=== PATIENT | female | born 1975 | race Caucasian/White ===

== ENCOUNTER → 2018-09-13 | Outpatient (CLI) | payer SELFPAY ==
[2018-09-13 09:59] LABS: Basophils # (A) 0.1 k/uL (0-0.2); Basophils % (A) 1 %; Eosinophils # (A) 0.3 k/uL (0-0.7); Eosinophils % (A) 3 %; HCT 43.9 % (34.0-46.0); HGB 14.2 gm/dL (11.4-16.0); Lymphocytes # (A) 1.6 k/uL (1.0-4.8); Lymphocytes % (A) 12 %; MCH 29.7 pg (25.0-35.0); MCHC 32.4 g/dL (31.0-37.0); MCV 91.7 fL (80.0-100.0); Mean Platelet Volume 6.6; Monocytes # (A) 0.5 k/uL (0-1.0); Monocytes % (A) 4 %; Neutrophils # (A) 10.3 k/uL (1.3-7.7); Neutrophils % (A) 80 %; Platelet Count 457 k/uL (150-450); RBC 4.79 m/uL (3.80-5.40); RDW 12.3 % (11.5-15.5); WBC 12.9 k/uL (3.8-10.6)
[2018-09-13 11:23] LABS: Erythrocyte Sedimentation Rate 42 mm/hr (0-20)
[2018-09-13 16:26] LABS: Albumin 4.4 g/dL (3.80-4.90); Albumin/Globulin Ratio 2.1 (1.60-3.17); Anion Gap 8.1 mmol/L (4.00-12.00); Calcium 9.4 mg/dL (8.7-10.3); Carbon Dioxide 27.9 mmol/L (21.6-31.8); Globulin 2.1 g/dL (1.6-3.3); Potassium 4.7 mmol/L (3.5-5.5); Total Bilirubin 0.4 mg/dL (0.2-1.2); Total Protein 6.5 g/dL (6.2-8.2)
[2018-09-13 16:41] LABS: Rheumatoid Factor <4 IU/mL (0-15)
== END | disposition home or self-care (01) ==
LOC: LABWHC1 09:16
PROVIDERS: ATTEND Internal Medicine
DX: M62.81 Muscle weakness (generalized) (principal); M25.50 Pain in unspecified joint
CPT/HCPCS: 36415; 80053; 82306; 85025; 85652; 86038; 86431

== ENCOUNTER → 2018-10-03 | Outpatient (CLI) | payer SELFPAY ==
[2018-10-03 13:46] LABS: Basophils % (A) 0 %; Eosinophils # (A) 0.3 k/uL (0-0.7); Eosinophils % (A) 2 %; HCT 46.3 % (34.0-46.0); Lymphocytes # (A) 2.2 k/uL (1.0-4.8); Lymphocytes % (A) 18 %; MCH 28.3 pg (25.0-35.0); MCHC 30.3 g/dL (31.0-37.0); MCV 93.4 fL (80.0-100.0); Mean Platelet Volume 6.5; Monocytes # (A) 0.5 k/uL (0-1.0); Monocytes % (A) 4 %; Neutrophils % (A) 74 %; Platelet Count 337 k/uL (150-450); RBC 4.96 m/uL (3.80-5.40); RDW 13.5 % (11.5-15.5); WBC 12.2 k/uL (3.8-10.6)
[2018-10-03 15:14] LABS: Erythrocyte Sedimentation Rate 15 mm/hr (0-20)
[2018-10-05 10:23] LABS: Lyme IgG/IgM 0.09 Index
== END ==
LOC: LABWHC1 12:42
PROVIDERS: ATTEND Internal Medicine
DX: G89.4 Chronic pain syndrome (principal); R53.83 Other fatigue; R53.81 Other malaise
CPT/HCPCS: 36415; 85025; 85652; 86618

== ENCOUNTER 2019-01-15 19:28 | Emergency (ER) | payer BC ==
[2019-01-15 19:34] VITALS: TEMP 98.3
[2019-01-15] MEDS ORDERED: KETOROLAC 30 MG/ML 1 ML VIAL IVP STA (19:59)
[2019-01-15] MEDS ORDERED: HYDROmorphone 0.5 MG/0.5 ML SYRINGE IVP STA (19:59)
[2019-01-15] MEDS ORDERED: SODIUM CHLORIDE 0.9% 1,000 ML IV STA (19:59)
[2019-01-15] MEDS ORDERED: ONDANSETRON 4 MG/2 ML VIAL IVP STA (19:59)
[2019-01-15 20:45] LABS: Appearance,Urine Cloudy (Clear); Bilirubin,Urine Negative (Negative); Blood,Urine Moderate (Negative); Color,Urine Yellow; Glucose,Urine (UA) Negative (Negative); Ketones,Urine Trace (Negative); Leukocyte Esterase,Urine Moderate (Negative); Mucus,Urine Many /hpf; Nitrite,Urine Negative (Negative); PH, Urine 6.5 (5.0-8.0); Protein,Urine Trace (Negative); RBC,Urine 134 /hpf (0-5); Specific Gravity,Urine 1.031 (1.001-1.035); Squamous Epithelial Cell,Urine 19 /hpf (0-4); WBC,Urine 1 /hpf (0-5)
[2019-01-15 20:46] LABS: Anisocytosis Slight; Basophils # (A) 0.1 k/uL (0-0.2); Basophils % (A) 1 %; Eosinophils # (A) 0.3 k/uL (0-0.7); Eosinophils % (A) 3 %; HCT 44.7 % (34.0-46.0); HGB 14.6 gm/dL (11.4-16.0); Lymphocytes # (A) 2.9 k/uL (1.0-4.8); Lymphocytes % (A) 27 %; MCH 31.1 pg (25.0-35.0); MCHC 32.8 g/dL (31.0-37.0); MCV 94.7 fL (80.0-100.0); Mean Platelet Volume 6.9; Monocytes # (A) 0.4 k/uL (0-1.0); Monocytes % (A) 4 %; Neutrophils # (A) 6.8 k/uL (1.3-7.7); Neutrophils % (A) 65 %; Platelet Count 381 k/uL (150-450); RBC 4.71 m/uL (3.80-5.40); RDW 17.3 % (11.5-15.5); WBC 10.5 k/uL (3.8-10.6)
[2019-01-15 20:56] LABS: ALT 46 U/L (9-52); AST 29 U/L (14-36); African American GFR (CKD) >90 (>60 ml/min/1.73 sqM); Albumin 4.5 g/dL (3.5-5.0); Alkaline Phosphatase 103 U/L (38-126); Amylase 55 U/L (30-110); Anion Gap 10 mmol/L; Blood Urea Nitrogen 14 mg/dL (7-17); Calcium 9.7 mg/dL (8.4-10.2); Carbon Dioxide 26 mmol/L (22-30); Chloride 107 mmol/L (98-107); Glucose 94 mg/dL (74-99); Potassium 4.2 mmol/L (3.5-5.1); Sodium 143 mmol/L (137-145); Total Bilirubin 0.3 mg/dL (0.2-1.3); Total Protein 7.7 g/dL (6.3-8.2)
--- NOTE | 2019-01-15 20:58 | ED ---
Abdominal Pain HPI - General Chief Complaint: Abdominal Pain Stated Complaint: Side Pain Time Seen by Provider: 01/15/19 19:38 Source: patient Mode of arrival: ambulatory Limitations: no limitations - History of Present Illness Initial Comments: 43-year-old female patient presents to the emergency department today for evaluation of right flank pain radiating into the right lower quadrant. Patient states this started earlier today and has been worsening since. Patient states now she has a constant urge to urinate. States that she has a sharp stabbing pain to the right flank. She denies history of similar symptoms. Denies nausea, vomiting, constipation, or diarrhea with this. Denies any dysuria or hematuria. She denies fever or chills. States she has had a but no other abdominal surgeries. Denies chest pain, shortness of breath, or cough. Patient denies any recent rash, numbness, tingling, dizziness, weakness, headache, visual changes, or any other complaints. - Related Data Home Medications Medication Instructions Recorded Confirmed Folic Acid 1 mg PO DAILY 01/15/19 01/15/19 Methotrexate Sodium [Methotrexate] 17.5 mg PO MO 01/15/19 01/15/19 buPROPion HCL [Wellbutrin XL] 300 mg PO DAILY 01/15/19 01/15/19 predniSONE 5 mg PO HS 01/15/19 01/15/19 predniSONE 10 mg PO QAM 01/15/19 01/15/19 Previous Rx's Medication Instructions Recorded Ibuprofen [Motrin] 600 mg PO Q8HR PRN #30 tab 01/15/19 Ondansetron [Zofran ODT] 4 mg PO Q8HR PRN #10 tab 01/15/19 Tamsulosin HCl [Flomax] 0.4 mg PO DAILY #7 cap 01/15/19 Allergies Allergy/AdvReac Type Severity Reaction Status Date / Time Penicillins AdvReac Nausea & Verified 01/15/19 19:56 Vomiting Review of Systems ROS Statement: Those systems with pertinent positive or pertinent negative responses have been documented in the HPI. ROS Other: All systems not noted in ROS Statement are negative. Past Medical History Additional Past Medical History / Comment(s): RA History of Any Multi-Drug Resistant Organisms: None Reported Past Surgical History: Section, Tonsillectomy Past Psychological History: No Psychological Hx Reported Smoking Status: Current every day smoker Past Alcohol Use History: Occasional Past Drug Use History: None Reported General Exam Limitations: no limitations General appearance: alert, in no apparent distress, other (This is a well- developed, well-nourished adult female patient in no acute distress. Vital signs upon presentation are temperature 98.3F, pulse 67, respirations 20, pulse ox 99% on room air.) Eye exam: Present: normal appearance, PERRL, EOMI. Absent: scleral icterus, conjunctival injection, periorbital swelling ENT exam: Present: normal exam, normal oropharynx, mucous membranes moist Respiratory exam: Present: normal lung sounds bilaterally. Absent: respiratory distress, wheezes, rales, rhonchi, stridor Cardiovascular Exam: Present: regular rate, normal rhythm, normal heart sounds. Absent: systolic murmur, diastolic murmur, rubs, gallop, clicks GI/Abdominal exam: Present: soft, tenderness (Right lower quadrant), normal bowel sounds. Absent: distended, guarding, rebound, rigid Back exam: Present: normal inspection, CVA tenderness (R). Absent: CVA tenderness (L) Neurological exam: Present: alert Psychiatric exam: Present: normal affect, normal mood Skin exam: Present: warm, dry, intact, normal color. Absent: rash Course Vital Signs 01/15/19 01/15/19 19:30 22:23 Temperature 98.3 F Pulse Rate 67 61 Respiratory 20 16 Rate Blood Pressure 114/77 O2 Sat by Pulse 99 99 Oximetry Medical Decision Making - Medical Decision Making 43-year-old female patient presents to the emergency department today for evaluation of right flank pain and right lower quadrant abdominal pain. Physical examination did reveal some right lower quadrant tenderness and right CVA tenderness. Labs reviewed and did reveal hematuria. CT of the abdomen and pelvis was obtained and showed evidence for kidney stone on the right. The sto ne is at the right UVJ. I did discuss findings and results with the patient. She'll be treated with pain medication, Flomax, and increasing fluids. She is instructed to follow-up with urology as needed. She is instructed to follow-up with her primary care physician for recheck in 1-2 days. Return parameters were discussed in detail. She verbalizes understanding and agrees with this plan. - Lab Data Result diagrams: 01/15/19 20:28 01/15/19 20:28 Lab Results 01/15/19 01/15/19 01/15/19 Range/Units 20:28 20:28 20:28 WBC 10.5 (3.8-10.6) k/uL RBC 4.71 (3.80-5.40) m/uL Hgb 14.6 (11.4-16.0) gm/dL Hct 44.7 (34.0-46.0) % MCV 94.7 (80.0-100.0) fL MCH 31.1 (25.0-35.0) pg MCHC 32.8 (31.0-37.0) g/dL RDW 17.3 H (11.5-15.5) % Plt Count 381 (150-450) k/uL Neutrophils % 65 % Lymphocytes % 27 % Monocytes % 4 % Eosinophils % 3 % Basophils % 1 % Neutrophils # 6.8 (1.3-7.7) k/uL Lymphocytes # 2.9 (1.0-4.8) k/uL Monocytes # 0.4 (0-1.0) k/uL Eosinophils # 0.3 (0-0.7) k/uL Basophils # 0.1 (0-0.2) k/uL Anisocytosis Slight Sodium 143 (137-145) mmol/L Potassium 4.2 (3.5-5.1) mmol/L Chloride 107 (98-107) mmol/L Carbon Dioxide 26 (22-30) mmol/L Anion Gap 10 mmol/L BUN 14 (7-17) mg/dL Creatinine 0.86 (0.52-1.04) mg/dL Est GFR (CKD-EPI)AfAm >90 (>60 ml/min/1.73 sqM) Est GFR (CKD-EPI)NonAf 83 (>60 ml/min/1.73 sqM) Glucose 94 (74-99) mg/dL Calcium 9.7 (8.4-10.2) mg/dL Total Bilirubin 0.3 (0.2-1.3) mg/dL AST 29 (14-36) U/L ALT 46 (9-52) U/L Alkaline Phosphatase 103 (38-126) U/L Total Protein 7.7 (6.3-8.2) g/dL Albumin 4.5 (3.5-5.0) g/dL Amylase 55 (30-110) U/L Lipase 106 (23-300) U/L Urine Color Yellow Urine Appearance Cloudy H (Clear) Urine pH 6.5 (5.0-8.0) Ur Specific [place] 1.031 (1.001-1.035) Urine Protein Trace H (Negative) Urine Glucose (UA) Negative (Negative) Urine Ketones Trace H (Negative) Urine Blood Moderate H (Negative) Urine Nitrite Negative (Negative) Urine Bilirubin Negative (Negative) Urine Urobilinogen 6.0 (<2.0) mg/dL Ur Leukocyte Esterase Moderate H (Negative) Urine RBC 134 H (0-5) /hpf Urine WBC 1 (0-5) /hpf Ur Squamous Epith Cells 19 H (0-4) /hpf Urine Mucus Many H (None) /hpf - Radiology Data Radiology results: report reviewed, image reviewed CT abdomen and pelvis is obtained. Report was reviewed in its entirety. Impression by Dr. Robert Alston shows mild obstructive uropathy on the ipsilateral right, secondary to the 2 mm calcification of the right UVJ. Disposition Clinical Impression: Kidney stone on right side Disposition: HOME SELF-CARE Condition: Good Instructions (If sedation given, give patient instructions): Kidney Stones (ED) Additional Instructions: Increase fluids. Take medications as directed. Follow-up with urology for recheck as soon as possible. Return to the emergency department immediately for any new, worsening, or concerning symptoms. Prescriptions: Tamsulosin HCl [Flomax] 0.4 mg PO DAILY #7 cap Ibuprofen [Motrin] 600 mg PO Q8HR PRN #30 tab PRN Reason: Pain Ondansetron [Zofran ODT] 4 mg PO Q8HR PRN #10 tab PRN Reason: Nausea Is patient prescribed a controlled substance at d/c from ED?: No Referrals: Shirley Cole DO [Primary Care Provider] - 1-2 days Michael Gracia MD [STAFF PHYSICIAN] - 1-2 days Time of Disposition: 22:07
--- NOTE | 2019-01-15 21:41 | CT ---
EXAMINATION TYPE: CT abdomen pelvis wo con DATE OF EXAM: 01/15/2019 COMPARISON: None HISTORY: RT flank pain and urge to urinate. CT DLP: 1216.4 mGycm Automated exposure control for dose reduction was used. TECHNIQUE: Helical acquisition of images was performed from the lung bases through the pelvis. FINDINGS: Within the limitations of noncontrast CT the following observations are made. LUNG BASES: No acute findings. LIVER/GB: No significant abnormality is appreciated. PANCREAS: No significant abnormality is seen. SPLEEN: No significant abnormality is seen. ADRENALS: No significant abnormality is seen. KIDNEYS, URETERS, AND BLADDER: There is a 2 mm calcification at the right ureterovesical junction, as sociated with mild ureterectasis and mild prominence to the upper collecting system. There are a few scattered nonobstructing renal calcifications measuring 1 to 3 mm, greater on the right. PERITONEAL CAVITY: No pneumoperitoneum or fluid. RETROPERITONEAL ADENOPATHY: None visualized REPRODUCTIVE ORGANS: No significant abnormality is seen URINARY BLADDER: No significant abnormality is seen. PELVIC ADENOPATHY: None visualized. OSSEOUS STRUCTURES: No significant abnormality is seen. BOWEL: No significant abnormality is seen. The appendix has normal appearance. IMPRESSION: Mild obstructive uropathy on the ipsilateral right, secondary to a 2 mm calcification at the right UVJ.
[2019-01-15] MEDS ORDERED: TAMSULOSIN 0.4 MG CAP.ER.24H PO STA (21:44)
[2019-01-15] MEDS ORDERED: IBUPROFEN 600 MG STARTER PACK 4 TAB BTL PO STA (21:44)
[2019-01-15] MEDS ORDERED: ACET/COD 300 MG/30 MG STARTER PACK 6 TAB BTL PO STA (21:44)
[2019-01-15] MEDS ORDERED: ONDANSETRON 4 MG ODT STARTER PACK 2 TAB BTL PO STA (21:44)
[2019-01-15 22:25] VITALS: BP 114/77; PULSE 61; RESP 16
== END 2019-01-15 22:39 | disposition home or self-care (01) ==
LOC: EC 19:28
DX: N20.1 Calculus of ureter (principal); M06.9 Rheumatoid arthritis, unspecified; F17.200 Nicotine dependence, unspecified, uncomplicated; Z88.0 Allergy status to penicillin; Z79.52 Long term (current) use of systemic steroids; Z79.899 Other long term (current) drug therapy
CPT/HCPCS: 99284; 96374; 96375 ×2; 96361; 36415; 80053; 82150; 83690; 85025; 81001; 74176; J2405; J1885; S0119; J1170

== ENCOUNTER → 2023-07-13 | Outpatient (CLI) | payer BC ==
--- NOTE | 2023-07-13 14:34 | CT ---
EXAMINATION TYPE: CT abdomen pelvis w con DATE OF EXAM: 07/13/2023 COMPARISON: 01/15/2019 HISTORY: RLQ abdominal pain CT DLP: 1850.2 mGycm Automated exposure control for dose reduction was used. TECHNIQUE: Helical acquisition of images was performed from the lung bases through the pelvis. CONTRAST: Performed with Oral Contrast and with IV Contrast, patient injected with 100 mL of Isovue 300. FINDINGS: The lung bases are clear. There is surgical absence of the gallbladder.. There is no biliary ductal dilatation. There is no focal mass or organomegaly involving the liver, pancreas, spleen or adrenal glands. There is moderate to marked right-sided hydronephrosis secondary to a 6 mm obstructing calculus in th e proximal right ureter. Left kidney is unremarkable. The caliber the abdominal aorta is normal is no retroperitoneal adenopathy or hemorrhage. The bowel loops are normal in caliber and there is no evidence of dilatation or obstruction. No infla mmatory changes are identified in the bowel wall or mesentery. There is no free intraperitoneal air or fluid. No pelvic mass, free fluid, abscess or adenopathy. The osseous structures and soft tissues are intact. IMPRESSION: Moderate to marked right sided hydronephrosis secondary to an obstructing 6 mm proximal right uretera l calculus. No other significant abnormalities seen..
== END | disposition home or self-care (01) ==
LOC: RADCTMAIN 12:00
PROVIDERS: ATTEND Family Medicine
DX: N13.2 Hydronephrosis with renal and ureteral calculous obstruction (principal); R11.0 Nausea; R63.0 Anorexia
CPT/HCPCS: 74177; Q9967

== ENCOUNTER → 2023-07-20 | Outpatient (CLI) | payer BC ==
[2023-07-20 16:03] LABS: BUN/Creat Ratio 13.45 Ratio (12.00-20.00); Blood Urea Nitrogen 14.8 mg/dL (9.0-27.0); Calcium 9.5 mg/dL (8.7-10.3); Chloride 108 mmol/L (96-109); Glucose 94 mg/dL (70-110); Potassium 4.3 mmol/L (3.5-5.5); Sodium 144 mmol/L (135-145)
[2023-07-20 16:45] LABS: Appearance,Urine Cloudy (Clear); Bilirubin,Urine Negative (Negative); Blood,Urine Negative (Negative); Color,Urine Yellow (Yellow); Ketones,Urine Negative (Negative); Nitrite,Urine Negative (Negative); PH, Urine 6.5; Urobilinogen,Urine 0.2 E.U./DL
[2023-07-20 16:51] LABS: Bacteria,Urine 2+ (None Seen)
[2023-07-20 17:04] LABS: Basophils % (A) 0.8 %; Eosinophils % (A) 6.4 %; HGB 14.3 g/dL (12.0-15.0); Lymphocytes # (A) 2.78 X 10*3/uL (0.90-5.00); Lymphocytes % (A) 22.2 %; MCH 28.9 pg (27.0-32.0); MCHC 31.1 g/dL (32.0-37.0); MCV 93.1 FL (80.0-97.0); Mean Platelet Volume 10.4 FL (9.5-12.2); Monocytes # (A) 0.63 X 10*3/uL (0.20-1.00); NRBC Per 100 WBC 0 X 10*3/uL (0.00-0.01); Neutrophils # (A) 8.13 X 10*3/uL (1.80-7.70); Platelet Count 358 X 10*3/uL (140-440); RBC 4.94 X 10*6/uL (4.10-5.20); RDW 13.3 % (11.5-14.5); WBC 12.51 X 10*3/uL (4.50-10.00)
== END | disposition home or self-care (01) ==
LOC: LABWHC1 12:20
PROVIDERS: ATTEND Urology
DX: Z01.812 Encounter for preprocedural laboratory examination (principal); N20.1 Calculus of ureter
CPT/HCPCS: 36415; 80048; 81001; 85025; 87086

== ENCOUNTER → 2023-07-25 | Day surgery (SDC) | payer BC ==
--- NOTE | 2023-07-24 14:42 | P.HPIHPCON ---
History of Present Illness H&P Date: 07/24/23 Chief Complaint: Right ureteral stone This is a 47-year-old female with a history of a 6 mm right-sided proximal ureteral stone, she is symptomatic from her stone. Option of right-sided ureteroscopy with holmium laser versus ESWL was discussed with her in detail. She agreed to proceed with a right-sided ureteroscopy with holmium laser. Aware the risk which includes but not limited to bleeding, infection, injury to the ureter. Risk of anesthesia was also discussed. She understood all the risk and agreed to proceed Consent for Procedure: I have explained the operation/procedure to the patient, including the risks, benefits, side effects, alternative therapies (including not receiving the proposed treatment or service), the likelihood of the patient achieving his/her goals, and potential recuperation problems for the procedure/sedation/analgesia, as well as any blood products, if indicated. I also explained to the patient the risks, benefits and side effects of the alternatives, as well as the risks related to not receiving the proposed procedure, care, treatment, or services. Past Medical History Past Medical History: Rheumatoid Arthritis (RA) Additional Past Medical History / Comment(s): kidney stones, History of Any Multi-Drug Resistant Organisms: None Reported Past Surgical History: Section, Cholecystectomy, Tonsillectomy Past Anesthesia/Blood Transfusion Reactions: No Reported Reaction Smoking Status: Current every day smoker - Past Family History Father Family Medical History: No Reported History Medications and Allergies Home Medications Medication Instructions Recorded Confirmed Type Ondansetron [Zofran ODT] 4 mg PO Q8HR PRN #10 tab 01/15/19 07/20/23 Rx Tamsulosin HCl [Flomax] 0.4 mg PO DAILY #7 cap 01/15/19 07/20/23 Rx buPROPion HCL [Wellbutrin XL] 300 mg PO DAILY 01/15/19 07/20/23 History predniSONE 2.5 - 5 mg PO QAM 01/15/19 07/20/23 History Abatacept [Orencia] 1 injection INJ TH 07/20/23 07/20/23 History Escitalopram [Lexapro] 10 mg PO DAILY 07/20/23 07/20/23 History Montelukast [Singulair] 10 mg PO DAILY 07/20/23 07/20/23 History Pantoprazole [Protonix] 40 mg PO DAILY 07/20/23 07/20/23 History Allergies Allergy/AdvReac Type Severity Reaction Status Date / Time Penicillins AdvReac Nausea & Verified 07/20/23 13:59 Vomiting Surgical - Exam - General no distress, moderate pain - Eyes normal ocular movement, no pale - ENT normal nares, normal mucosa - Respiratory normal expansion, normal respiratory effort - Abdomen Abdomen: soft, non tender Assessment and Plan Assessment: OR for right-sided ureteroscopy, holmium laser lithotripsy, stone basketing and stent insertion
[~2023-07-25] MED LIST: HYDROmorphone 0.5 MG/0.5 ML SYRINGE IVP PRN; LIDOCAINE 1% INJ 10MG/ML (20 ML MDV) ONE; MIDAZOLAM 2 MG/2 ML VIAL ONE; PROPOFOL 10 MG/ML 20 ML VIAL IV ONE; SUCCINYLCHOLINE CHLORIDE 200 MG/10 ML VIAL IV ONE; fentaNYL (PF) 50 MCG/ML 2 ML AMP ONE
--- NOTE | 2023-07-25 09:44 | XR ---
EXAMINATION TYPE: XR KUB DATE OF EXAM: 07/25/2023 8:57 AM CLINICAL INDICATION:Female, 47 years old with history of N20.1 ureteral stone; COMPARISON: CT 07/13/2023 TECHNIQUE: One radiographic view of the abdomen was obtained. FINDINGS: The bowel gas pattern is nonspecific without dilated loops of small or large bowel. There i s no evidence for organomegaly or pneumoperitoneum. The osseous structures are intactProximal right ureter calcification remains present. Fecal material and gas are demonstrated throughout the colon an d rectum. Right upper quadrant cholecystectomy clips. IMPRESSION: 1. Similar location of calculus in the proximal right ureter measuring 4 mm. 2. Nonspecific bowel gas pattern without radiographic evidence for acute process.
[2023-07-25 09:54] LABS: Glucose,Whole Blood 102 mg/dL (70-110)
[2023-07-25] MEDS: LACTATED RINGERS 1,000 ML IV SCH (09:59)
[2023-07-25] MEDS: ONDANSETRON 4 MG/2 ML VIAL IVP ONE (10:09)
[2023-07-25] MEDS: HYDROCORTISONE SUCCINATE 100 MG/2 ML VIAL IVP ONE (10:09)
[2023-07-25] MEDS: DEXAMETHASONE SOD PHOSPHATE 4 MG/ML 1 ML VIAL IV ONE (10:09)
[2023-07-25] MEDS: SCOPOLAMINE 1 MG/72 HR PATCH TRANSDERM ONE (10:10)
[2023-07-25] MEDS: CIPROFLOXACIN/DEXTROSE PMX 400 MG in DEXTROSE/WATER 1 200ML.BAG IVPB PRN (10:15)
[2023-07-25 11:11] VITALS: TEMP 97.2
--- NOTE | 2023-07-25 11:16 | P.OP ---
Date of Procedure: 07/25/23 Preoperative Diagnosis: Right ureteral stone Postoperative Diagnosis: Same Procedure(s) Performed: Cystoscopy, right ureteroscopy, holmium laser lithotripsy, stone basketing and stent insertion Implants: 6Fr X 26 cm in right urete, left on a string Anesthesia: OZZIEA Surgeon: Keith Croft Estimated Blood Loss (ml): 2 Pathology: other (Right ureteral stone) Condition: stable Disposition: PACU Indications for Procedure: This is a 47-year-old female with a history of a 6 mm right-sided proximal ureteral stone, she is symptomatic from her stone. Option of right-sided ureteroscopy with holmium laser versus ESWL was discussed with her in detail. She agreed to proceed with a right-sided ureteroscopy with holmium laser. Aware the risk which includes but not limited to bleeding, infection, injury to the ureter. Risk of anesthesia was also discussed. She understood all the risk and agreed to proceed Operative Findings: Right-sided proximal ureteral stone Description of Procedure: Patient brought to the operating room, general anesthesia was induced. She was prepped and draped in sterile fashion placed in the dorsolithotomy position, cystoscopy fitted with a 21 Bengali sheath was inserted per urethra, cystoscopy was performed which showed no abnormality within the bladder. Attention was then carried to the right ureteral orifice which was intubated with a sensor wire. Next under fluoroscopy and 1113 Bengali access sheath was passed over the wire into the proximal ureter. Of note there was a radiopaque stone seen at the proximal ureter. Next a flexible ureteroscope was inserted through the access sheath, a stone was encountered in the proximal ureter. Using the holmium laser the stone was fragmented, stone fragments were removed using the stone basket. Repeat ureteroscopy and renoscopy showed no sizable fragments, any additional stones or injury to the kidney or the ureter. On fluoroscopy there was no radiopaque densities visualized. Pullback ureteroscopy was performed which showed no injury to the ureter or any ureteral stones, as ureteroscope was withdrawn, a sensor wire was advanced through. Next a ureteral stent was passed over the wire, the proximal curl was visualized on fluoroscopy and the distal curl was visualized using the cystoscope. The bladder was emptied at the end of the case. Patient tolerated procedure well was taken to recovery in stable condition
[2023-07-25 11:46] LABS: Glucose,Whole Blood 117 mg/dL (70-110)
[2023-07-25 12:22] VITALS: RESP 16
[2023-07-25 12:57] VITALS: BP 110/71; PULSE 60
--- NOTE | 2023-07-25 16:20 | FL ---
EXAMINATION TYPE: FL guidance operating room Intraoperative/procedural fluoroscopic services were pro vided. Total fluoroscopy time is 6.5 seconds with a total of 1 submitted images to PACS. Please see t he operative/procedural note for further details. DAP: [id number] mGym2
== END | disposition home or self-care (01) ==
LOC: OR 08:42
PROVIDERS: ATTEND Urology
DX: N20.1 Calculus of ureter (principal); M06.9 Rheumatoid arthritis, unspecified; K21.9 Gastro-esophageal reflux disease without esophagitis; F17.210 Nicotine dependence, cigarettes, uncomplicated; Z98.891 History of uterine scar from previous surgery; Z90.49 Acquired absence of other specified parts of digestive tract; Z79.899 Other long term (current) drug therapy; Z88.0 Allergy status to penicillin; Z98.890 Other specified postprocedural states
CPT/HCPCS: 81025; 82365; 74018; 52356; C2625; C1769; J2250; J0330; J1100; J1720; J2405; J2001; J3010; J0744; J2704